=== PATIENT | female | born 1995 | race Caucasian/White ===

== ENCOUNTER 2023-10-29 10:52 | Emergency (ER) | payer OTHER ==
[2023-10-29] MEDS ORDERED: Lidocaine 1% 10 ML MDV INJECT ONE (11:02)
== END 2023-10-29 11:50 | disposition home or self-care (01) ==
LOC: VM.ED 10:52
DX: S62.522A Displaced fracture of distal phalanx of left thumb, initial encounter for closed fracture (principal); S61.102A Unspecified open wound of left thumb with damage to nail, initial encounter; W22.8XXA Striking against or struck by other objects, initial encounter
CPT/HCPCS: 11730; 73140-FA; 99283; J3490